=== PATIENT | female | born 1945 | race Caucasian/White ===

== ENCOUNTER → 2020-10-24 | Outpatient (CLI) | payer OTHER ==
[~2020-10-24] MED LIST: LEVO75TA5 PO; LISI40TA6 PO; METO50TA29 PO; OXYB5TAB10 PO; SIMV10TA15 PO
== END ==
LOC: LAB 13:31
PROVIDERS: ATTEND Nurse Anesthetist, Certified Registered
DX: Z01.812 Encounter for preprocedural laboratory examination (principal); R42 Dizziness and giddiness; Z20.822 Contact with and (suspected) exposure to COVID-19
CPT/HCPCS: U0003

== ENCOUNTER → 2020-10-27 | Day surgery (SDC) | payer MEDICARE, OTHER ==
[~2020-10-27] MED LIST changes: +AMLO-186 PO; +CHOL400T36 PO; +IPRATRPIUM/ALBUTEROL 0.5/2.5MG 3 ML NEBU. NEB PRN; +IV RINGERS SOLUTION,LACTATED 1,000 ML IV SCH; +LIDOCAINE 2% PF 5 ML VIAL. ONE; +MIDAZOLAM HCL PF 2 MG/2 ML VIAL. IV ONE; +OMEG-152 PO; +ONDANSETRON PF 4 MG/2 ML VIAL. IV PRN; +PROPOFOL 10,000 MCG/ML (20ML) VIAL IV ONE
[2020-10-27 12:46] VITALS: BP 139/76
--- NOTE | 2020-10-31 19:13 | PATHOLOGY ---
[facility] Accession Number: [id number] . 01 Material submitted: . ANTRUM - ANTRUM GASTRITIS . 01 Clinical history: . GERD EGD, COLONSCOPY . 02 Diagnosis: Gastric biopsies, antrum: - Chronic gastritis, mild. (JPM:cesar; 10/31/2020) [facility] 10/31/2020 1633 Local . 02 Comment: Sections of the gastric biopsy reveal segments of gastric antral and antral/body transition mucosa showing congestion and mild chronic inflammation. A properly controlled immunoperoxidase stain for Helicobacter is negative for Helicobacter organisms. (JPM:cesar; 10/31/2020) . Special stain performed: Immunoperoxidase stain for Helicobacter on A1 . 02 Electronically signed: . Dawood Turner MD, Pathologist NPI- [id number] . 01 Gross description: . The specimen is received in formalin, labeled "Connell, Paz, antrum gastritis" received as 2 fragments of soft jamil tissue measuring up to 0.3 cm. Entirely submitted in A1.([facility]; 10/30/2020) [facility] 10/31/2020 1631 Local . 02 Pathologist provided ICD-10: K29.50 . 02 CPT . 343417, [id number] Specimen Comment: A courtesy copy of this report has been sent to [phone], [phone] Specimen Comment: [phone] Specimen Comment: Report sent to / DR TERRY Performed at: 01 [facility] [address], [place], [place] [id number] MD Vicente Martínez MD Phone: [phone] Performed at: 02 [facility] [address], [place] [id number] MD Dawood Turner MD Phone: [phone]
== END | disposition home or self-care (01) ==
LOC: SURG 09:53
PROVIDERS: ATTEND Internal Medicine Gastroenterology
DX: R19.5 Other fecal abnormalities (principal); R12 Heartburn; K29.50 Unspecified chronic gastritis without bleeding; K64.8 Other hemorrhoids; K21.00 Gastro-esophageal reflux disease with esophagitis, without bleeding; E78.5 Hyperlipidemia, unspecified; I10 Essential (primary) hypertension; E07.9 Disorder of thyroid, unspecified; Z79.899 Other long term (current) drug therapy; Z98.890 Other specified postprocedural states
CPT/HCPCS: 43239; 45378; J2001; J2704; J7120